=== PATIENT | female | born 1985 | race Two or more races ===

== ENCOUNTER → 2016-12-20 | Outpatient (CLI) | payer BC ==
[2014-03-24 09:15] VITALS: BP 113/71
[~2016-12-20] MED LIST: HYDR-971 PO; MEDR150D3 IM; NAPR220C4 PO
--- NOTE | 2016-12-20 10:22 | RAD ---
INDICATION: History of ovarian cysts and tubal reversal COMPARISON: None. TECHNIQUE: Grayscale and color ultrasound images uterus and adnexa. Declined transvaginal exam. FINDINGS: Uterus: 10.6 x 5.4 x 4.9 cm. Endometrial Stripe: 3 mm. Right Ovary: 2.3 x 2.1 x 1.7 cm. Left Ovary: 2.5 x 1.8 x 1.6 cm. IMPRESSION: 1. Limited examination secondary to lack of transvaginal imaging. 2. No definite large adnexal cystic mass is seen.
== END | disposition home or self-care (01) ==
LOC: US 09:21
PROVIDERS: ATTEND Obstetrics & Gynecology
DX: Z98.51 Tubal ligation status (principal); Z85.43 Personal history of malignant neoplasm of ovary
CPT/HCPCS: 76856